=== PATIENT | male | born 1990 | race Caucasian/White ===

== ENCOUNTER → 2020-04-01 | Outpatient (CLI) | payer OTHER ==
[~2020-04-01] MED LIST: 0.9 % SODIUM CHLORIDE 10 ML DISP.SYRIN. ID ONE; GADOTERATE 5 MMOL/10ML VIAL. INT ART ONE; IOHEXOL 300 MG/ML 50 ML VIAL. INT ART ONE; LIDOCAINE 1% Multi-Dose 20 ML VIAL. ID ONE
--- NOTE | 2020-04-01 16:47 | KCIC ---
STUDY: MRI arthrogram of the left shoulder INDICATION: Tear of the glenoid labrum. Shoulder pain. COMPARISON: None. TECHNIQUE: Multiplanar MR imaging of the left shoulder performed after the intra-articular injection of contrast material. The injection portion of the procedure is detailed in a separate report. FINDINGS: AC joint: Os acromiale. No significant AC joint arthrosis. No gadolinium-containing fluid within the subacromial subdeltoid bursa. Rotator cuff: No tear or significant tendinosis. Normal muscular bulk and signal. Labrum: The superior labrum is intact. Nondisplaced tear of the anterior/inferior labrum on the ABER sequence. Long head biceps tendon: Intact and normally located. Cartilage: High-grade/full-thickness chondral loss at the anterior/inferior quadrant of the glenoid w ith subchondral cystic change, image 7 series 9. There may be a component of matching chondral thinni ng at the inferomedial humeral head. Bones: No acute fracture or focally aggressive marrow signal abnormality. Miscellaneous: Unremarkable axillary soft tissues. Impression: 1. Subtle nondisplaced tear of the anterior/inferior labrum best seen on the ABER sequence. Also note d is high-grade/full-thickness chondral loss at the anterior/inferior quadrant of the glenoid with donohue bchondral cystic change. This degree of chondral loss is unusual for patient age and could be on rela [place]an[place] to a prior traumatic event or potentially from long-standing instability. Correlate with patient history. 2. Intact rotator cuff and long head biceps tendon. 3. Os acromiale. Electronically signed by: RAHEEL SANTIAGO MD (04/01/2020 4:45 PM) [id number]
--- NOTE | 2020-04-01 16:48 | KCIC ---
Study: Fluoroscopically guided arthrogram of the left shoulder joint for MRI Indication: Tear of the left glenoid labrum. Contrast: 2 cc Omnipaque 300; 0.1 cc Clariscan Technique: A timeout was performed prior to beginning the procedure in order to confirm patient identity and lat erality of the injection. The risks, benefits and alternatives of the procedure were discussed. Utilizing sterile technique, fluoroscopic guidance and local anesthesia with 1% lidocaine, the left s houlder joint was accessed utilizing a 22-gauge, 3.5" spinal needle. Confirmation of needle position was obtained with a small amount of radiopaque contrast. Subsequently, approximately 12 cc of a mixtu re containing 15 cc saline, 5 cc lidocaine and 0.1 cc Clariscan was injected. There were no immediate post procedure complications. Fluoroscopy time: 18 seconds Number of images obtained: 1 Impression: Technically successful fluoroscopic guided arthrogram of the left shoulder joint without immediate po stprocedure complication. Electronically signed by: RAHEEL SANTIAGO MD (04/01/2020 4:46 PM) [id number]
== END | disposition home or self-care (01) ==
LOC: KCIC 12:27
PROVIDERS: ATTEND Physician Assistant
DX: M25.512 Pain in left shoulder (principal); S43.432A Superior glenoid labrum lesion of left shoulder, initial encounter; Z79.899 Other long term (current) drug therapy; X58.XXXA Exposure to other specified factors, initial encounter; Y93.89 Activity, other specified; Y92.89 Other specified places as the place of occurrence of the external cause; Y99.8 Other external cause status
CPT/HCPCS: 23350; 73222; 77002; A9575; J3490; Q9967; 73040

== ENCOUNTER → 2020-05-02 | Outpatient (CLI) | payer OTHER ==
[~2020-05-02] MED LIST changes: -0.9 % SODIUM CHLORIDE 10 ML DISP.SYRIN. ID ONE; -GADOTERATE 5 MMOL/10ML VIAL. INT ART ONE; -IOHEXOL 300 MG/ML 50 ML VIAL. INT ART ONE; -LIDOCAINE 1% Multi-Dose 20 ML VIAL. ID ONE; +OXYC1TAB19 PO
== END ==
LOC: LAB 14:05
PROVIDERS: ATTEND Orthopaedic Surgery
DX: Z01.812 Encounter for preprocedural laboratory examination (principal); M24.112 Other articular cartilage disorders, left shoulder; Z20.822 Contact with and (suspected) exposure to COVID-19
CPT/HCPCS: U0003

== ENCOUNTER 2020-05-06 06:35 | Day surgery (SDC) | payer OTHER ==
[~2020-05-06] VITALS: Ht 180.3 cm; Wt 83.0 kg
[~2020-05-06 06:35] MED LIST changes: +HYDROmorphone 2 MG/ML VIAL IVP PRN; +IV RINGERS,LACTATED 1000ML 1,000 ML IV SCH; +MORPHINE SULFATE 2 MG/ML VIAL. IVP PRN; -OXYC1TAB19 PO; +PROCHLORPERAZINE 10 MG/2 ML VIAL. IVP PRN; +fentaNYL PF VIAL 100 MCG/2 ML VIAL IVP PRN
[2020-05-06] MEDS ORDERED: EPINEPHrine VIAL 30 MG/30 ML VIAL ONE (07:14)
[2020-05-06] MEDS ORDERED: MIDAZOLAM HCL/PF 2 MG/2 ML VIAL. ONE (07:31)
[2020-05-06] MEDS ORDERED: OXYC1TAB19 PO (07:31)
[2020-05-06] MEDS ORDERED: ROPIVacaine 0.5% PF 20 ML VIAL. ONE (07:32)
--- NOTE | 2020-05-06 07:34 | DISCH ---
DISCHARGE INSTRUCTIONS Condition on Discharge Condition on Discharge: Stable Activity After Discharge Activity Instructions for Disc: Other, see below (Wear immobilizer at night at all times, may remove during the day for pendulum exercises or gentle motion with arm near side such as eating writing typing etc.) Weight Bearing Status after Di: Non weight bearing Diet after Discharge Diet after Discharge: Regular Wound Incision Care Wound/Incision Care: Change dressing (Remove dressing in 2 days may then shower) Community/Resources/Services Services at Discharge: PT EVALUATE & TREAT (Home exercises of pendulum motion of shoulder only, will instruct in some gentle internal/external rotation strengthening on follow-up, no formal PT until about 6 weeks postop) Contacting the after DC Call your doctor for: Concerns you may have Follow-Up Follow up with: Dr. Rivas or Avelina 7 to 10 days NAYELY RIVAS MD May 06, 2020 07:33
[2020-05-06] MEDS ORDERED: ROCURONIUM 50 MG/5 ML VIAL. ONE (08:08)
[2020-05-06] MEDS ORDERED: DEXAMETHASONE SOD PHOS 4 MG/ML VIAL ONE (08:40)
[2020-05-06] MEDS ORDERED: ONDANSETRON PF 4 MG/2 ML VIAL. ONE (08:40)
[2020-05-06] MEDS ORDERED: LIDOCAINE 2% PF 5 ML VIAL. ONE (08:40)
[2020-05-06] MEDS ORDERED: PROPOFOL 10 MG/ML (20ML) VIAL. IV ONE (08:40)
[2020-05-06] MEDS ORDERED: SEVOFLURANE > 120 MINUTES. IH ONE (08:40)
[2020-05-06] MEDS ORDERED: KETOROLAC 30 MG/ML VIAL. ONE (10:08)
[2020-05-06 11:01] VITALS: BP 113/67
[2020-05-06] MEDS ORDERED: oxyCODONE/APAP 7.5/325 1 TAB TABLET ONE (11:01)
[2020-05-06] MEDS ORDERED: oxyCODONE/APAP 7.5/325 1 TAB TABLET PO ONE (11:15)
[2020-05-06] MEDS ORDERED: oxyCODONE/APAP 5/325 1 TAB TABLET PO ONE (11:15)
--- NOTE | 2020-05-06 14:59 | PDOC4 ---
Operative Note Operative Note Date of surgery: 05/06/2020 Preoperative diagnosis: Left shoulder anterior labral tear and instability Postoperative diagnosis: same with superior labral fraying Operative procedure: Left shoulder arthroscopy debridement of superior labrum and arthroscopic Bankart repair Surgeon: Rob Rn Examiner: Catrachita mcrae assist Anesthesia: General plus interscalene block Estimated blood loss: 5 cc Complications: None Operative indications: Please see my preoperative orthopedic clinic note for detailed operative indications and note that he has severe shoulder pain and instability. We talked about arthroscopic evaluation since nonoperative measures have failed and MRI confirms the clinical diagnosis. We talked about arthroscopic stabilization and the success rate of it and all his questions were answered he wishes to proceed with surgical evaluation and treatment and we did cover the possibility of continued pain instability nonhealing infection nerve or blood vessel damage medical or other anesthetic complications among others Operative text: Patient was identified procedure verified patient placed in the supine position on the operating table. After adequate amounts of general anesthesia plus a pre-existing scalene block were obtained he was placed decubitus left side up with the beanbag for positioning and all bony prominences were well-padded. The left shoulder was then prepped and draped in standard sterile fashion examined under anesthesia found a full range of motion with anterior inferior instability. He was then placed in the arthroscopic arm ibarra with a total of 10 pounds of traction and after timeout was performed patient procedure identified and verified a standard posterior portal was established an anterior portal established using spinal needle localization and the shoulder joint was systematically examined. He was noted to have a type I SLAP tear which was debrided back to stable tissue with the arthroscopic shaver and electrocautery. Biceps anchor was intact and no evidence of bicipital fraying or subluxation noted. The joint side of the rotator cuff insertion was noted to be intact including the supraspinatus infraspinatus, bare area of the humerus was noted to be slightly enlarged and very irritated and the subscapularis insertion noted to be intact. In addition to the anterior inferior capsular laxity he had significant irregularity of the anterior labrum and full-thickness cartilage wear from subluxation at the anterior inferior aspect of the glenoid without a bony deficit. Anterior labrum was detached from the 3:00 to 7 o'clock position with a [place] blade and arthroscopic shaver used to roughen up the anterior inferior aspect of the glenoid back to bleeding bony surface. Tucks of capsular tissue were advanced from the 7 o'clock position of to about 530 using a single loaded juggernaut anchor with #2 max braid that was placed in the cartilage defect to recreate an inferior bumper of tissue and tighten the capsule. Similar advancement of capsular tissue was carried out to recreate an anterior inferior bumper and tied in place with sliding locking knots backed up by alternating post half hitches at the 4:00 and 3:00 positions on the glenoid face. Excellent recreation of the labral bumper and capsular advancement were carried out and resulted in centering of the glenohumeral joint and no instability up in the apprehension position of abduction external rotation. Joint was then drained of arthroscopic fluid portals closed with nylon suture sterile dressings were applied patient was placed in an immobilizer and returned to recovery room in stable condition having tolerated the procedure well NAYELY HARRY MD May 06, 2020 14:59
== END 2020-05-06 12:05 | disposition home or self-care (01) ==
LOC: SURG 06:35
PROVIDERS: ATTEND Orthopaedic Surgery
DX: S43.492A Other sprain of left shoulder joint, initial encounter (principal); M24.112 Other articular cartilage disorders, left shoulder; Z79.899 Other long term (current) drug therapy; Z72.89 Other problems related to lifestyle; Z98.890 Other specified postprocedural states; X58.XXXA Exposure to other specified factors, initial encounter; Y93.89 Activity, other specified; Y92.89 Other specified places as the place of occurrence of the external cause; Y99.8 Other external cause status
CPT/HCPCS: 29806; 29822; 64450; A4213; A4930; C1713; C1776; J0171; J0690; J1100; J1885; J2250; J2405; J2704; J2795; A4223